=== PATIENT | female | born 1995 | race Caucasian/White ===

== ENCOUNTER 2018-01-22 08:26 | Emergency (ER) | payer OTHER, SELFPAY ==
--- NOTE | 2018-01-22 08:48 | ER ---
Nurse's Notes [facility] Name: Nara Stratton Age: 22 yrs Sex: Female : 1995 Arrival Date: 01/22/2018 Time: 08:29 Bed 20 Private MD: None, None Diagnosis: Encounter for screening, unspecified Presentation: 01/22 08:32 Presenting complaint: Patient states: bright red bloody stool noted this morning. sv Denies dizziness. Pt stated the only thing she has changed is taking herbal supplements called CLA. Transition of care: patient was not received from another setting of care. Onset of symptoms was January 22, 2018. 08:32 Method Of Arrival: Ambulatory sv 08:32 Acuity: YEISON 4 sv 08:33 Risk Assessment: Do you want to hurt yourself or someone else? Patient reports no sv desire to harm self or others. Initial Sepsis Screen: Does the patient meet any 2 criteria? No. Patient's initial sepsis screen is negative. Does the patient have a suspected source of infection? No. Patient's initial sepsis screen is negative. Care prior to arrival: None. Triage Assessment: 08:43 General: Appears in no apparent distress. comfortable, slender, Behavior is calm, sv cooperative, appropriate for age. Pain: Denies pain. EENT: No signs and/or symptoms were reported regarding the EENT system. Neuro: Level of Consciousness is awake, alert, obeys commands, Oriented to person, place, time, situation, Moves all extremities. Full function Gait is steady. Cardiovascular: Patient's skin is warm and dry. Respiratory: Respiratory effort is even, unlabored, Respiratory pattern is regular, symmetrical. GI: Abdomen is flat, Reports rectal bleeding. Derm: Skin is pink, warm \T\ dry. 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 - Social history:: Smoking status: Patient/guardian denies using tobacco. - Ebola Screening: : No symptoms or risks identified at this time. Screenin:42 Abuse screen: Denies threats or abuse. Denies injuries from another. Nutritional sv screening: No deficits noted. Tuberculosis screening: No symptoms or risk factors identified. Fall Risk None identified. Assessment: 08:43 Reassessment: See triage assessment. sv 08:58 Reassessment: Patient appears in no apparent distress at this time. No changes from sv previously documented assessment. Patient and/or family updated on plan of care and expected duration. Pain level reassessed. Patient is alert, oriented x 3, equal unlabored respirations, skin warm/dry/pink. Vital Signs: 08:41 BP 130 / 84; Pulse 69; Resp 16; Temp 97.6(O); Pulse Ox 98% on R/A; Weight 52.16 kg (R); sv Height 5 ft. 4 in. (162.56 cm) (R); Pain 0/10; 08:41 Body Mass Index 19.74 (52.16 kg, 162.56 cm) sv ED Course: 08:29 Patient arrived in ED. sb2 08:30 None, None is Private Physician. sb2 08:31 Tricia Ndiaye RN is Primary Nurse. sv 08:33 Linnette Guzman FNP-C [facility]. snw 08:33 Terry Ferguson MD is Attending Physician. snw 08:40 Triage completed. sv 08:40 Patient has correct armband on for positive identification. Placed in gown. Bed in low sv position. Call light in reach. Pulse ox on. NIBP on. Door closed. Warm blanket given. Head of bed elevated. 08:42 Arm band placed on right wrist. sv 08:44 Nurse Practitioner and/or Physician Retail Custodial Associate to see patient. sv 08:58 No provider procedures requiring assistance completed. Patient did not have IV access sv during this emergency room visit. Administered Medications: No medications were administered Outcome: 08:47 Discharge ordered by . snw 08:58 Discharged to home ambulatory, with family. sv 08:58 Condition: stable 08:58 Discharge instructions given to patient, Instructed on discharge instructions, follow up and referral plans. medication usage, Demonstrated understanding of instructions, follow-up care, medications, Prescriptions given X 1. 08:58 Patient left the ED. sv Signatures: Tricia Ndiaye RN RN sv Linnette Guzman FNP-C FNP-Loganw Millie Collins sb2
--- NOTE | 2018-01-22 08:48 | EDPHYS ---
Physician Documentation [facility] Name: Nara Stratton Age: 22 yrs Sex: Female : 1995 Arrival Date: 01/22/2018 Time: 08:29 Bed 20 Private MD: None, None ED Physician Terry Ferguson HPI: 01/22 09:11 This 22 yrs old Female presents to ER via Ambulatory with complaints of snw Bloody Stools. 09:11 Onset: The symptoms/episode began/occurred acutely, today. Associated signs and snw symptoms: The patient has no apparent associated signs or symptoms. Modifying factors: the patient symptoms are aggravated by nothing. The patient has not experienced similar symptoms in the past. The patient has not recently seen a physician. Denies abd pain, constipation, diarrhea. Pt states she believes the symptoms to be caused by an herbal supplement called CLA. Pt is quite thin. States she was taking this supplement for fat loss. States she will no longer be taking . 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 - Social history:: Smoking status: Patient/guardian denies using tobacco. - Ebola Screening: : No symptoms or risks identified at this time. ROS: 09:11 Constitutional: Negative for fever, chills, and weight loss, Eyes: Negative for injury, snw pain, redness, and discharge, ENT: Negative for injury, pain, and discharge, Neck: Negative for injury, pain, and swelling, Cardiovascular: Negative for chest pain, palpitations, and edema, Respiratory: Negative for shortness of breath, cough, wheezing, and pleuritic chest pain, Abdomen/GI: Negative for abdominal pain, nausea, vomiting, diarrhea, and constipation, 1 episode of stool today and pt noted bright red blood. Back: Negative for injury and pain, : Negative for injury, bleeding, discharge, and swelling, MS/Extremity: Negative for injury and deformity, Skin: Negative for injury, rash, and discoloration, Neuro: Negative for headache, weakness, numbness, tingling, and seizure. Exam: 09:10 Constitutional: This is a well developed, well nourished patient who is awake, alert, snw and in no acute distress. Head/Face: Normocephalic, atraumatic. Eyes: Pupils equal round and reactive to light, extra-ocular motions intact. Lids and lashes normal. Conjunctiva and sclera are non-icteric and not injected. Cornea within normal limits. Periorbital areas with no swelling, redness, or edema. ENT: Nares patent. No nasal discharge, no septal abnormalities noted. Tympanic membranes are normal and external auditory canals are clear. Oropharynx with no redness, swelling, or masses, exudates, or evidence of obstruction, uvula midline. Mucous membranes moist. Neck: Trachea midline, no thyromegaly or masses palpated, and no cervical lymphadenopathy. Supple, full range of motion without nuchal rigidity, or vertebral point tenderness. No Meningismus. Chest/axilla: Normal chest wall appearance and motion. Nontender with no deformity. No lesions are appreciated. Cardiovascular: Regular rate and rhythm with a normal S1 and S2. No gallops, murmurs, or rubs. Normal PMI, no JVD. No pulse deficits. Respiratory: Lungs have equal breath sounds bilaterally, clear to auscultation and percussion. No rales, rhonchi or wheezes noted. No increased work of breathing, no retractions or nasal flaring. Abdomen/GI: Soft, non-tender, with normal bowel sounds. No distension or tympany. No guarding or rebound. No evidence of tenderness throughout. Minimal external hemorrhoid, no bleeding Back: No spinal tenderness. No costovertebral tenderness. Full range of motion. Skin: Warm, dry with normal turgor. Normal color with no rashes, no lesions, and no evidence of cellulitis. MS/ Extremity: Pulses equal, no cyanosis. Neurovascular intact. Full, normal range of motion. Neuro: Awake and alert, GCS 15, oriented to person, place, time, and situation. Cranial nerves II-XII grossly intact. Motor strength 5/5 in all extremities. Sensory grossly intact. Cerebellar exam normal. Normal gait. Vital Signs: 08:41 BP 130 / 84; Pulse 69; Resp 16; Temp 97.6(O); Pulse Ox 98% on R/A; Weight 52.16 kg (R); sv Height 5 ft. 4 in. (162.56 cm) (R); Pain 0/10; 08:41 Body Mass Index 19.74 (52.16 kg, 162.56 cm) sv MDM: 08:33 Patient medically screened. snw 09:13 Data reviewed: vital signs, nurses notes. Data interpreted: Pulse oximetry: on room air snw is 98 %. Interpretation: normal. Counseling: I had a detailed discussion with the patient and/or guardian regarding: the historical points, exam findings, and any diagnostic results supporting the discharge/admit diagnosis, the need for outpatient follow up, to return to the emergency department if symptoms worsen or persist or if there are any questions or concerns that arise at home. Special discussion: Based on the patient's Hx, exam, and Dx evaluation, there is no indication for emergent surgery or inpatient Tx. It is understood by the patient/guardian that if the Sx's persist or worsen they need to return immediately for re-evaluation. Medical screen evaluation completed. EMTALA emergency medical condition absent. ED course: RTED prn excess bruising, gingival bleeding, abd pain, fever, etc. Administered Medications: No medications were administered Disposition: 01/23 07:17 Co-signature as Attending Physician, Terry Ferguson MD. Disposition: 01/22/18 08:47 Discharged to Home. Impression: Encounter for screening, unspecified. - Condition is Stable. - Discharge Instructions: High-Fiber Diet, Hemorrhoids, Sitz Bath. - Prescriptions for Anusol- HC 2.5 % Rectal Cream - Apply to affected area 1 application by TOPICAL route every 8 hours As needed; 30 gram. - Medication Reconciliation Form, Thank You Letter, Antibiotic Education, Prescription Opioid Use form. - Follow up: Private Physician; When: 1 week; Reason: Recheck today's complaints, Continuance of care, Re-evaluation by your physician. Follow up: Emergency Department; When: As needed; Reason: Worsening of condition. Signatures: Tricia Ndiaye RN RN Linnette Yee, BOY'S ADVISER-C BOY'S ADVISER-Csnw Terry Ferguson MD MD gs Corrections: (The following items were deleted from the chart) 01/22 08:58 08:47 01/22/2018 08:47 Discharged to Home. Impression: Encounter for screening, sv unspecified. Condition is Stable. Forms are Medication Reconciliation Form, Thank You Letter, Antibiotic Education, Prescription Opioid Use. Follow up: Private Physician; When: 1 week; Reason: Recheck today's complaints, Continuance of care, Re-evaluation by your physician. Follow up: Emergency Department; When: As needed; Reason: Worsening of condition. snw
[2018-01-22 09:03] VITALS: BP 130/84; TEMP 97.6; O2SAT 98
== END 2018-01-22 08:58 | disposition home or self-care (01) ==
LOC: ER 08:26
DX: K92.1 Melena (principal)
CPT/HCPCS: 99283